=== PATIENT | female | born 1975 | race Caucasian/White ===

== ENCOUNTER → 2016-02-21 | Day surgery (SDC) | payer OTHER ==
--- NOTE | 2016-02-18 20:54 | GHP ---
[f rep st] HISTORY AND PHYSICAL Amended report DATE OF ADMISSION: 02/21/2016 HISTORY OF PRESENT ILLNESS: Patient is a 41-year-old 3, para 1-0-1-1 at 7 weeks and 3 days with an estimated due date 10/03/2016 based on ultrasound with a last menstrual period of 12/23/2015. Patient was seen yesterday at [facility] for AMA and viability. Patient did have an ultrasound done that showed an intrauterine , 6 weeks 1 day by crown rump length and no cardiac motion seen. Diagnosed with first trimester demise. Patient denies any uterine contractions, vaginal bleeding or loss of fluid. Pt endorses some brownish spotting. Today, she is without complaints. Previous ultrasound on 02/11/2016 did show a single living intrauterine , size less than dates by 6 days with heart motion noted at 129 beats per minute. Prior ultrasound to that, 02/03/2016 did show an intrauterine at 6 weeks 0 days with a heart rate of 90 beats per minute. Patient presented early for her care at [facility]. Patient did have lab work with an appropriate increase or rise in quants from early January through mid January. She even had normal progesterone levels. Patient is Rh positive, 0 positive. Patient is interested in having a suction D and C at this time. We did discuss other treatment options; conservative treatment with observation versus medical treatment with Cytotec. She still desires surgical treatment, a suction D and C at this time. 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 Patient is interested in work up for recurrent loss. PAST OB HISTORY: In 2014, patient had a 37 week section, female, 5 pounds 5 ounces, secondary to placenta previa. In December 2015, she had twins with missed at around 5 weeks requiring a suction D and C. FARM TRACTOR OPERATOR HISTORY: Cycles are irregular, can be as long as 48 days and she usually bleeds for 3-4 days. Her last menstrual period was 12/23/2015. She has a history of abnormal Pap in 2001 and had a colposcopy. Most recent Pap smear July 2015 was normal, and chlamydia and gonorrhea cultures were normal July 2015. PAST MEDICAL HISTORY: Negative. PAST SURGICAL HISTORY: Remarkable for section as well as wisdom teeth extraction. FAMILY HISTORY: Paternal grandfather , age 80, myocardial infarction. Both mother and father have chronic hypertension. Maternal grandmother breast cancer diagnosed age 79. ALLERGIES: Penicillin, tetracycline. MEDICATIONS: vitamins, DHA. SOCIAL HISTORY: Negative for any alcohol, tobacco, illicit drug use. She does live with her and their daughter, Heather. LABS: Most recent quantitative beta HCG was 1194, progesterone was 68.7; this was on 01/18/2016. She is 0 positive. PHYSICAL EXAMINATION: GENERAL: Patient is a well-nourished, well-developed, 41 -year-old female. Alert and oriented x3. No apparent distress. She is tearful. HEART: Regular rate and rhythm. LUNGS: Clear to auscultation bilaterally. ABDOMEN: Soft, nontender. PELVIC: Deferred. ASSESSMENT/PLAN: Patient is a 41-year-old 3, para 1-0-1-1, with a 6 week 1 day fetus by crown rump length with Missed . Patient was given treatment options. She desires surgical treatment at this time, suction D and C. This is scheduled with Dr. Anh Kong on 02/21/2016 at 7:30 am. Surgical consents are to be done at the bedside by Dr. Kong. Antibiotics: Doxycycline 100 mg IV prior to the incision. /[id number]/MODL Add acc#, 02/21/16, roland GIBSON
[~2016-02-21] MED LIST: CLINDAMYCIN 600 MG/DEXTROSE 50 ML IV ONE; DEXAMETHASONE 4 MG/ML VIAL ONE; KETOROLAC 30 MG/1 ML SDV ONE; LIDOCAINE 2% 100 MG/5 ML SYR IVP ONE; LR 1,000 ML IV SCH; MIDAZOLAM 2 MG/2 ML VIAL ONE; PROPOFOL/EMULSION 500 MG/50 ML BOTTLE IV ONE; SILVER NITRATE APPLICATOR 1 APPL TP ONE; fentaNYL 100 MCG/2 ML INJ ONE
--- NOTE | 2016-02-21 10:38 | GOP ---
[f rep st] OPERATIVE REPORT DATE OF OPERATION: 02/21/2016 SURGEON: Anh Kong MD PREOPERATIVE DIAGNOSIS: MAB at 8 wks POSTOPERATIVE DIAGNOSIS: MAB at 8 wks PROCEDURE PERFORMED: D and C FINDINGS: mod amount of POCs SPECIMENS: The POCs were sent to pathology and then to be sent on to Anora testing. I spoke with Dr. Ulloa of Pathology to hopefully facilitate that the bulk of the tissue be sent on for testing as the patient did not have an adequate sampling for results at the last D and C. ESTIMATED BLOOD LOSS: 25 mL. DESCRIPTION OF PROCEDURE: The patient was taken to the operating room, where following satisfactory IV general anesthesia, the patient was placed in dorsal lithotomy position for vaginal procedures. The patient had urinated prior to coming to the operating room. The patient was given a dose of IV clindamycin prior to the procedure. She had SCDs on her lower extremities for DVT prophylaxis. The patient's perineum and vagina were prepped, and the patient draped in usual sterile manner for vaginal procedures. The patient had wanted confirmation prior to surgery, and an ultrasound had been performed, showing a gestational sac with a large yolk sac and a very small pole with no cardiac activity. A sterile speculum was placed within the vagina. An atraumatic grasper was placed on the anterior lip of the cervix, and gentle traction applied. The cervix was easily dilated up to 8-1/2 Hegar dilator. A # 8 tip was used on the suction machine, and 2 passes were made with the suction, obtaining a moderate amount of tissue. As the patient wanted to minimize any scraping, an ultrasound was performed at this point, which revealed that there was no retained sac, and the endometrial lining was thin. Sharp curettage was used for just minimal scraping on the anterior lining, and only small fragments of tissue obtained. One final pass with the suction was performed, and minimal blood obtained. There was minimal bleeding after the procedure. The tenaculum was removed and the cervix was hemostatic. The patient was given a dose of Toradol through the IV. The patient was cleaned off and taken out of position, and then taken to the recovery room in stable condition. She was waking up normally. There were no complications from surgery. PREOPERATIVE HISTORY: Upon admission, the patient is a 41-year-old, G3, P1, A1 at 8-9 weeks gestation by 2 earlier ultrasounds that showed increasing growth and heart rate. However , on visit on 02/17/2016 with a maternal specialist, the patient was measuring size less than dates at 6 weeks 4 days with no cardiac activity. She was diagnosed with a missed AB, and was advised about options. She did want to optimize chromosome testing and wants to proceed with a D and C for definitive management. The patient is aware of options with potentially awaiting an SAB versus Cytotec to induce a miscarriage, but the patient wants to proceed with surgery. The patient has been fully counseled as to risks and benefits, and the consent form signed. The patient's laboratory testing had been normal with good progesterone levels and increasing HCG levels. Her blood type is A positive. The patient has not had any bleeding or cramping and has symptoms of nausea. The patient does want Anora testing for chromosomes. /[id number]/MODL MTDD
== END | disposition home or self-care (01) ==
LOC: FOBOP 06:30
PROVIDERS: ATTEND Obstetrics & Gynecology
PROC: 10D17ZZ Extraction of Products of Conception, Retained, Via Natural or Artificial Opening (ICD-10-PCS; principal; 2016-02-21)
DX: O02.1 Missed abortion (principal)
CPT/HCPCS: J1100; J1885; J2001; J2250; J2704; J3010

== ENCOUNTER → 2017-02-08 | Outpatient (CLI) | payer OTHER | LOC: CIMAGING 07:27 | PROVIDERS: ATTEND Obstetrics & Gynecology | DX: Z12.31 Encounter for screening mammogram for malignant neoplasm of breast (principal); R92.8 Other abnormal and inconclusive findings on diagnostic imaging of breast ==

== ENCOUNTER → 2017-10-11 | Outpatient (CLI) | payer OTHER | LOC: FIMAGING 11:31 | PROVIDERS: ATTEND Obstetrics & Gynecology | DX: O09.522 Supervision of elderly multigravida, second trimester (principal); O09.292 Supervision of pregnancy with other poor reproductive or obstetric history, second trimester; Z3A.15 15 weeks gestation of pregnancy ==

== ENCOUNTER → 2017-11-08 | Outpatient (CLI) | payer OTHER | LOC: FIMAGING 10:21 | PROVIDERS: ATTEND Obstetrics & Gynecology | DX: O09.512 Supervision of elderly primigravida, second trimester (principal); O26.22 Pregnancy care for patient with recurrent pregnancy loss, second trimester; D68.61 Antiphospholipid syndrome; O99.112 Other diseases of the blood and blood-forming organs and certain disorders involving the immune mechanism complicating pregnancy, second trimester ==

== ENCOUNTER → 2018-02-14 | Outpatient (CLI) | payer OTHER | LOC: FIMAGING 13:10 | PROVIDERS: ATTEND Obstetrics & Gynecology | DX: O09.523 Supervision of elderly multigravida, third trimester (principal); O09.293 Supervision of pregnancy with other poor reproductive or obstetric history, third trimester; Z3A.33 33 weeks gestation of pregnancy ==

== ENCOUNTER → 2018-02-21 | Outpatient (CLI) | payer OTHER | LOC: FIMAGING 14:02 | PROVIDERS: ATTEND Obstetrics & Gynecology | DX: O09.523 Supervision of elderly multigravida, third trimester (principal); O26.23 Pregnancy care for patient with recurrent pregnancy loss, third trimester; O99.113 Other diseases of the blood and blood-forming organs and certain disorders involving the immune mechanism complicating pregnancy, third trimester; D68.61 Antiphospholipid syndrome; Z3A.34 34 weeks gestation of pregnancy ==

== ENCOUNTER 2018-03-01 07:40 | Observation (INO) | payer OTHER ==
[2018-03-01] MEDS ORDERED: HEPARIN 5,000 UNIT/0.5 ML INJ SC SCH (10:15)
--- NOTE | 2018-03-01 16:09 | GHP ---
DATE OF ADMISSION: 03/01/2018 ADMISSION DIAGNOSIS: Intrauterine at 35 and 4/7 weeks' gestation, vaginal bleeding. Patient is a 43-year-old 7, para 1-0-5-1, who called this morning complaining of having a slight cramping and a small amount of dark brownish blood. Patient states she is feeling good movement. She has a Doppler for home and baby sounded good, but she came in for evaluation. Patient has a history of a previous section for placenta previa and is scheduled for repeat at 39 weeks secondary to the previous and history of isthmocele repair prior to this . Patient also was found to have antiphospholipid antibody syndrome, so she has been anticoagulated during this with Lovenox and baby aspirin. On arrival , patient's status was reassuring. She was having occasional contractions on the monitor, which were not palpating. She had no further bleeding. Nonstress test was reactive with positive accelerations and no decelerations. A speculum exam was performed, which showed a small amount of old blood in the vagina. No active bleeding was noted. A digital exam was performed, which showed the cervix to be fingertip and 50% effaced. is in a vertex presentation. We had a long discussion about management options and patient is electing to go home. We discussed bleeding precautions, kick counts and labor precautions. She has been on Lovenox b.i.d. We transitioned her to heparin b.i.d. and I asked her to discontinue her baby aspirin. She will continue her 2-times-a- week nonstress test and follow up in the office next week. Patient was discharged to home and will follow up if any further questions arise. /[id number]/MODL MTDD
== END 2018-03-01 12:20 | disposition home or self-care (01) ==
LOC: FOBOP 07:40 → FLD 08:00
PROVIDERS: ADMIT Obstetrics & Gynecology; ATTEND Obstetrics & Gynecology
DX: O46.003 Antepartum hemorrhage with coagulation defect, unspecified, third trimester (principal); Z3A.35 35 weeks gestation of pregnancy
CPT/HCPCS: 59025; G0378; J1644

== ENCOUNTER → 2018-03-14 | Outpatient (CLI) | payer OTHER | LOC: FIMAGING 13:47 | PROVIDERS: ATTEND Obstetrics & Gynecology | DX: O09.523 Supervision of elderly multigravida, third trimester (principal); O26.23 Pregnancy care for patient with recurrent pregnancy loss, third trimester; O99.113 Other diseases of the blood and blood-forming organs and certain disorders involving the immune mechanism complicating pregnancy, third trimester; D89.82 Autoimmune lymphoproliferative syndrome [ALPS]; Z79.01 Long term (current) use of anticoagulants; Z3A.37 37 weeks gestation of pregnancy ==

== ENCOUNTER 2018-03-23 17:15 | Inpatient (IN) | payer OTHER ==
[2018-03-23] MEDS ORDERED: CITRIC ACID/SODIUM CITRATE 30 ML UDCUP PO ONE (18:36)
[2018-03-23] MEDS ORDERED: LR 500 ML IV ONE ×2 (18:36→19:44)
[2018-03-23] MEDS ORDERED: LR 1,000 ML IV SCH ×2 (19:00→20:00)
[2018-03-23 19:14] LABS: PLATELET COUNT 205 10^3/uL (150-400)
[2018-03-23] MEDS ORDERED: BUPIVACAINE/DEXTROSE 7.5MG/ML 2 ML SPINAL AMP SP ONE (19:22)
[2018-03-23] MEDS ORDERED: morphINE PF 10 MG/10 ML INJ ONE (19:23)
[2018-03-23] MEDS ORDERED: OXYTOCIN 100 UNITS/10 ML VIAL ONE (19:23)
[2018-03-23] MEDS ORDERED: PHENYLEPHRINE HCL 100 MCG/ML SYR ONE ×4 (19:23→21:03)
--- NOTE | 2018-03-23 19:32 | PDANEPAE ---
ANE Past Medical History - Cardiovascular History Hx Hypertension: No Hx Arrhythmias: No Hx Chest Pain: No - Pulmonary History Hx COPD: No Hx Sleep Apnea: No - Endocrine History Hx Diabetes: No Hypothyroid: No - Renal History Hx Renal Disorders: No - Liver History Hx Hepatic Disorders: No - Neurological & Psychiatric Hx Hx Neurological and Psychiatric Disorders: No - Congenital Disorder History Hx Congenital Disorders: No - Other Health History Other Health History: Hx APL Syndrome - Chronic Pain History Chronic Pain: No ANE Review of Systems Review of Systems: ANE Patient History - Allergies Allergies/Adverse Reactions: Penicillins Allergy (Verified 02/28/15 14:59) Rash tetracycline Allergy (Verified 02/28/15 14:59) Other-Enter Comments venom-honey bee [bee venom (honey bee)] Allergy (Verified 02/28/15 14:59) Swelling/neck,face,throat pumpkin Allergy (Uncoded 04/02/14 09:12) - Home Medications Home Medications: 1 tab PO DAILY 03/19/14 [Last Taken Unknown] FOLIC ACID 400 mcg PO DAILY 03/01/18 [Last Taken Unknown] Naltrexone 4.5 mg PO DAILY 03/01/18 [Last Taken Unknown] Vitamin D3/Folic Acid 1 tab PO DAILY 03/01/18 [Last Taken Unknown] - Smoking Hx Smoking Status: Never smoked ANE Labs/Vital Signs - Labs Result Diagrams: 03/23/18 19:00 - Vital Signs Height: 167.64 cm Weight: 62.596 kg ANE Physical Exam - Airway Neck exam: FROM Mallampati Score: Class 2 Mouth exam: normal dental/mouth exam - Pulmonary Pulmonary: no respiratory distress, no rales or rhonchi, clear to auscultation - Cardiovascular Cardiovascular: regular rate and rhythym, no murmur, rub, or gallop - ASA Status ASA Status: III, E ANE Anesthesia Plan Anesthesia Plan: spinal
[2018-03-23] MEDS ORDERED: AZITHROMYCIN IV 500 MG in NS 250 ML IV ONE (19:45)
[2018-03-23] MEDS ORDERED: PROMETHAZINE HCL 25 MG/ML INJ IVP PRN ×2 (19:48→21:43)
[2018-03-23] MEDS ORDERED: METOCLOPRAMIDE 10 MG/2 ML VIAL IVP PRN (19:48)
[2018-03-23] MEDS ORDERED: PHENYLEPHRINE HCL 100 MCG/ML SYR IVP PRN (19:48)
[2018-03-23] MEDS ORDERED: oxyCODONE IR 5 MG TAB PO PRN (19:48)
[2018-03-23] MEDS ORDERED: ONDANSETRON 4 MG/2 ML VIAL IVP PRN (19:48)
[2018-03-23] MEDS ORDERED: MEPERIDINE 25 MG/0.5 ML AMP IVP PRN (19:48)
[2018-03-23] MEDS ORDERED: NALOXONE HCL 0.4 MG/ML INJ IVP PRN (19:48)
[2018-03-23] MEDS ORDERED: HYDROmorphONE/DILAUDID 2 MG/ML INJ IVP PRN (19:48)
[2018-03-23] MEDS ORDERED: fentaNYL 100 MCG/2 ML INJ IVP PRN (19:48)
[2018-03-23] MEDS ORDERED: ceFAZolin 2 GM/DEXTROSE 100 ML IV ONE (19:49)
--- NOTE | 2018-03-23 19:51 | POSTANESTH ---
Post Anesthetic Evaluation Cardiovascular Status: Normal, Stable Respiratory Status: Normal, Stable Level of Consciousness/Mental Status: Can Participate in Eval Pain Control: Adequate, Prn Tx Ordered Nausea/Vomiting Control: Adequate, Prn Tx Ordered Complications Possibly Related to Anesthesia: None Noted
--- NOTE | 2018-03-23 20:19 | PDGENHP ---
History and Physical - Chief Complaint SROM, H/o prior - History of Present Illness Ignacia is a 43 yo at 38w5d by LUPIS of 04/01/18 (by IVF transfer) who presented this evening complaining of small but continuous intermittent loss of fluid over the course of the past 24 hrs. Amnisure positive. She reports that yesterday afternoon she noticed some loss of fluid and change in abdominal pain/ contractions, but leaking was not consistent and pain eventually resolved and she was able to sleep. She reported that today the leaking has still been small but definitely still occurring, so she did present for evaluation. No real ctx's currently on admission, afebrile, otherwise feeling good. With Ignacia's last she was on inpatient bedrest w placenta previa during the third trimester leading up to scheduled PLTCS. Did well with her first section, but did ultimately get dx'd with an isthmocele that was later repaired robotically by [employer] in [place]. Since that first had recurrent preg loss (one of those had Anora T16) , dx'd with anti-phospholipid antibody syndrome, had failed IVF w [facility] and then this successful transfer w [facility] in [place]. Due to APLS on Lovenox 40 BID, transitioned to Heparin 10k BID at 36 wks - last dose was 0700 this AM. otherwise complicated by AMA, Depression/anxiety, Large subchorionic hematoma at 12 wks, Naltrexone recommended throughout by [facility]. Labs: O pos Antibody neg RPR NR Rubella IMMUNE Hep B neg HIV neg Parvo and VZV IMMUNE GC/C neg AFp neg Innatal Neg Glucola 80 GBS neg History Information - Allergies/Home Medication List Allergies/Adverse Reactions: Penicillins Allergy (Verified 02/28/15 14:59) Rash tetracycline Allergy (Verified 02/28/15 14:59) Other-Enter Comments venom-honey bee [bee venom (honey bee)] Allergy (Verified 02/28/15 14:59) Swelling/neck,face,throat pumpkin Allergy (Uncoded 04/02/14 09:12) Home Medications: 1 tab PO DAILY 03/19/14 [Last Taken Unknown] FOLIC ACID 400 mcg PO DAILY 03/01/18 [Last Taken Unknown] Naltrexone 4.5 mg PO DAILY 03/01/18 [Last Taken Unknown] Vitamin D3/Folic Acid 1 tab PO DAILY 03/01/18 [Last Taken Unknown] I have personally reviewed and updated: family history, medical history, social history, surgical history Past Medical History: Anti-phospholipid antibody syndrome, AMA, Anxiety/ depression, naltrexone use throughout , recurrent loss - Surgical History Additional surgical history: H/o , h/o robotic isthmocele repair, wisdom teeth, D&C x 2, back surgery herniated disk - Family History Positive for: non-pertinent - Social History Smoking Status: Never smoked Review of Systems Review of Systems: ROS: 10pt was reviewed & negative except for what was stated in HPI & below Physical Exam Physical Exam: Appears comfortable, calm, NAD Belly soft, NT, ND Longitudinal lie FHR 120s, mod jim, accels present, no decels [place] Irritability Temp Pulse Resp BP Pulse Ox 37.7 C 84 16 112/61 98 03/23/18 19:29 03/23/18 19:29 03/23/18 19:29 03/23/18 19:29 03/23/18 19:29 Lab Data & Imaging Review 03/23/18 19:00 WBC 11.36 10^3/uL (3.80-9.50) H 03/23/18 19:00 RBC 4.26 10^6/uL (4.18-5.33) 03/23/18 19:00 Hgb 14.0 g/dL (12.6-16.3) 03/23/18 19:00 Hct 40.4 % (38.0-47.0) 03/23/18 19:00 MCV 94.8 fL (81.5-99.8) 03/23/18 19:00 MCH 32.9 pg (27.9-34.1) 03/23/18 19:00 MCHC 34.7 g/dL (32.4-36.7) 03/23/18 19:00 RDW 12.7 % (11.5-15.2) 03/23/18 19:00 Plt Count 205 10^3/uL (150-400) 03/23/18 19:00 MPV 10.5 fL (8.7-11.7) 03/23/18 19:00 Neut % (Auto) 62.5 % (39.3-74.2) 03/23/18 19:00 Lymph % (Auto) 23.0 % (15.0-45.0) 03/23/18 19:00 Rawlins % (Auto) 9.9 % (4.5-13.0) 03/23/18 19:00 Eos % (Auto) 1.6 % (0.6-7.6) 03/23/18 19:00 Baso % (Auto) 0.9 % (0.3-1.7) 03/23/18 19:00 Nucleat RBC Rel Count 0.0 % (0.0-0.2) 03/23/18 19:00 Absolute Neuts (auto) 7.11 10^3/uL (1.70-6.50) H 03/23/18 19:00 Absolute Lymphs (auto) 2.61 10^3/uL (1.00-3.00) 03/23/18 19:00 Absolute Monos (auto) 1.12 10^3/uL (0.30-0.80) H 03/23/18 19:00 Absolute Eos (auto) 0.18 10^3/uL (0.03-0.40) 03/23/18 19:00 Absolute Basos (auto) 0.10 10^3/uL (0.02-0.10) 03/23/18 19:00 Absolute Nucleated RBC 0.00 10^3/uL (0-0.01) 03/23/18 19:00 Immature Gran % 2.1 % (0.0-1.1) H 03/23/18 19:00 Immature Gran # 0.24 10^3/uL (0.00-0.10) H 03/23/18 19:00 APTT 32.6 SEC (23.0-38.0) 03/23/18 19:55 Membrane Rupture POSITIVE (NEGATIVE) H 03/23/18 17:35 Patient ABO/Rh O POSITIVE 03/23/18 19:00 Antibody Screen NEGATIVE 03/23/18 19:00 Assessment & Plan Assessment: 43 yo w/ h/o prior section, presents at 38w5d with SROM. - Will proceed to OR this evening. - Azithromycin 500mg IV following weight-based Ancef. - No s/sx of chorio/infection at this time - afebrile, normal WBC, baby FHR normal range. - Routine preop orders including PTT due to 0700 heparin dose. - Plan to restart Lovenox 40mg BID 12 hrs postop (0900 tomorrow AM). - Routine preop orders. JM
[2018-03-23] MEDS ORDERED: ePHEDrine SULFATE 25 MG/5 ML SYR ONE ×2 (21:09→21:13)
[2018-03-23] MEDS ORDERED: BISACODYL 10 MG SUPP PR PRN (21:43)
[2018-03-23] MEDS ORDERED: POLYETHYLENE GLYCOL 3350 17 GM PKT PO PRN (21:43)
[2018-03-23] MEDS ORDERED: LACTULOSE 20 GM/30 ML UDCUP PO PRN (21:43)
[2018-03-23] MEDS ORDERED: MAGNESIUM HYDROXIDE 30 ML UDCUP PO PRN (21:43)
--- NOTE | 2018-03-23 21:54 | POSTOPPROG ---
Post Op Note Date of Operation: 03/23/18 Surgeon: Danilo Alexis Gasket Former: Anh Kong Anesthesiologist: Lul Taylor Anesthesia: Spinal Pre-op Diagnosis: SROM, h/o prior , h/o hysterotomy revision laparoscopic Post-op Diagnosis: Same Procedure: RLTCS Findings: Minimal scar tissue, vigorous baby boy, normal [place]/tubes/ovaries Inf/Abcess present in the surg proc area at time of surgery?: No EBL: 700 Complications: None Specimen(s): None
--- NOTE | 2018-03-23 22:00 | SUROPNOTE ---
[facility] Operative Report - Surgery Date of Operation: 03/23/18 Surgeon: Danilo Alexis C.O.D. Biller: Anh Kong Anesthesiologist: Lul Taylor Anesthesia: Spinal Pre-op Diagnosis: SROM, h/o prior , h/o hysterotomy revision laparoscopic Post-op Diagnosis: Same Procedure: RLTCS Findings: Minimal scar tissue, vigorous baby boy, normal [place]raham/tubes/ovaries Inf/Abcess present in the surg proc area at time of surgery?: No EBL: 700 Complications: None Specimen(s): None Technique:
[2018-03-23] MEDS: KETOROLAC 30 MG/1 ML SDV IVP SCH (22:29)
[2018-03-23] MEDS: IBUPROFEN 600 MG TAB PO SCH (23:00)
[2018-03-24] MEDS: ACETAMINOPHEN 325 MG TAB PO SCH ×5 (00:45→23:06)
[2018-03-24] MEDS: IBUPROFEN 600 MG TAB PO SCH ×4 (04:18→23:05)
[2018-03-24] MEDS: KETOROLAC 30 MG/1 ML SDV IVP SCH ×3 (04:56→17:11)
[2018-03-24] MEDS: ENOXAPARIN 40 MG/0.4 ML SYR SC SCH ×2 (09:36→21:26)
[2018-03-24] MEDS: SENNOSIDES/DOCUSATE SODIUM TAB PO SCH ×2 (11:25→21:26)
--- NOTE | 2018-03-24 13:49 | PDPAINCON ---
Pain Management Consultation - Subjective Pain is: low, well controlled Activity: able to ambulate - Objective Technique: spinal opioid Sensory and motor exam: other (pain well controlled, local anesthetic effect resolved) Vital signs: stable - Assessment/Plan Assessment/Plan: pain well-controlled, continue current mgmt Additional comments: transition to po analgesics as spinal morphine effect wanes
--- NOTE | 2018-03-24 14:42 | OBPP ---
Progress Note Assessment/Plan: Assessment: POD 1 s/p RCS doing well but feeling light headed and low blood pressure - no clinical signs of concern h/o APLS - on lovenox BID Depr/anxiety, h/o recurrent Ab, IVF Plan: routine post op care, lovenox will cont IVF for now while pt rests, and d/c nixon when amb well 03/24/18 14:24 Subjective/ Course: 03/24/18 14:42 Pt doing well. Pain well controlled with Toradol and duramorph. No nausea, eating reg diet. Not OOB yet. Didn't sleep much and visitors all today and feels off - a bit lightheaded. Disc rest. Baby has been latching well and getting colostrum. Pt asked why I hadn't had her come into hosp to check for ROM on Fri night - and we disc that usually physical signs of ROM will further manifest with cont leaking and labor and that we'd planned that if cramping increased or cont leaking that it would be prudent to check. pt reported several hours of strong cramping after we talked but she didn't call back. Unable to know for sure if pt was prolonged ROM or not. Luckily, no signs of infection with normal WBCs on admit and baby doing wonderfully. Objective: 03/24/18 05:20 Patient ABO/Rh O POSITIVE 03/23/18 19:00 Temp Pulse Resp BP Pulse Ox 36.4 C 76 16 78/52 L 97 03/24/18 12:00 03/24/18 12:00 03/24/18 12:00 03/24/18 12:00 03/24/18 12:00 Uterine Position/Fundal Height: Umbilicus -2 Uterine Tone: Firm Physical Exam - Physical Exam Abdomen: non-tender (approp post op tenderness), soft, dressing (CDI) Extremities: non-tender, pedal edema (none - SCDs on) Skin: normal color, warm/dry Neuro/Psych: alert, normal mood/affect
[2018-03-25] MEDS: oxyCODONE IR 5 MG TAB PO PRN ×2 (01:07→13:45)
[2018-03-25] MEDS: IBUPROFEN 600 MG TAB PO SCH ×4 (05:02→23:38)
[2018-03-25] MEDS: ACETAMINOPHEN 325 MG TAB PO SCH ×4 (05:02→23:38)
--- NOTE | 2018-03-25 10:31 | OBPP ---
Progress Note Assessment/Plan: Assessment: pod# 2 s/p RLTCS symptomatic hypotension - resolved antiphospholipid antibody syndrome on lovenox breast feeding Plan: 03/25/18 10:28 Subjective/ Course: 03/24/18 14:42 Pt doing well. Pain well controlled with Toradol and duramorph. No nausea, eating reg diet. Not OOB yet. Didn't sleep much and visitors all today and feels off - a bit lightheaded. Disc rest. Baby has been latching well and getting colostrum. Pt asked why I hadn't had her come into hosp to check for ROM on Fri night - and we disc that usually physical signs of ROM will further manifest with cont leaking and labor and that we'd planned that if cramping increased or cont leaking that it would be prudent to check. pt reported several hours of strong cramping after we talked but she didn't call back. Unable to know for sure if pt was prolonged ROM or not. Luckily, no signs of infection with normal WBCs on admit and baby doing wonderfully. 03/25/18 10:29 patient is doing well. pain is well controlled. normal lochia. feeling better than yesterday. less light headedness. ambulating. passing gas. voiding without difficulty. breast feeding is going well. Objective: 03/24/18 05:20 Patient ABO/Rh O POSITIVE 03/23/18 19:00 Temp Pulse Resp BP Pulse Ox 36.5 C 84 16 95/62 L 96 03/25/18 08:00 03/25/18 08:00 03/25/18 08:00 03/25/18 08:00 03/25/18 08:00 Physical Exam - Physical Exam Respiratory: chest non-tender, lungs clear, normal breath sounds Cardiac/Chest: normal peripheral pulses, regular rate, rhythm Abdomen: normal bowel sounds, non-tender (fu), other (fundus firm and non tender ) Extremities: normal range of motion, non-tender, normal inspection, normal capillary refill Skin: normal color, warm/dry, other (incicion clean dry and intact) Neuro/Psych: no motor/sensory deficits, alert, normal mood/affect, oriented x 3
[2018-03-25] MEDS: ENOXAPARIN 40 MG/0.4 ML SYR SC SCH ×2 (11:03→21:34)
[2018-03-25] MEDS: SENNOSIDES/DOCUSATE SODIUM TAB PO SCH ×2 (11:04→21:34)
[2018-03-25] MEDS: SIMETHICONE 80 MG TAB CHEW PO PRN (16:36)
[2018-03-25] MEDS ORDERED: HYDROCORTISONE 0.5% CREAM TP SCH (22:00)
[2018-03-25] MEDS ORDERED: diphenhydrAMINE 25 MG CAP PO ONE (22:00)
[2018-03-26] MEDS: IBUPROFEN 600 MG TAB PO SCH ×3 (05:32→14:30)
[2018-03-26] MEDS: ACETAMINOPHEN 325 MG TAB PO SCH ×3 (05:33→14:27)
[2018-03-26] MEDS: SENNOSIDES/DOCUSATE SODIUM TAB PO SCH (08:44)
[2018-03-26] MEDS: ENOXAPARIN 40 MG/0.4 ML SYR SC SCH (08:44)
--- NOTE | 2018-03-26 09:32 | OBPP ---
Progress Note Assessment/Plan: Assessment: 1) s/p RLTCS POD #3 - pt is stable 2) Slight anemia - pt is asymptomatic 3) Antiphospholipid antibody syndrome - on lovenox Plan: Plan for d/c home today Instructions reviewed with pt Rx given for Oxy, Motrin and Lovenox Continue PNV, iron and colace prn Pelvic rest Cont Lovenox x 6 weeks pp Lifting restrictions given RTC in 2 weeks for incision check, 4 weeks for a mood check and 6 weeks for a pp check 03/26/18 09:28 Subjective/ Course: 03/24/18 14:42 Pt doing well. Pain well controlled with Toradol and duramorph. No nausea, eating reg diet. Not OOB yet. Didn't sleep much and visitors all today and feels off - a bit lightheaded. Disc rest. Baby has been latching well and getting colostrum. Pt asked why I hadn't had her come into hosp to check for ROM on Fri night - and we disc that usually physical signs of ROM will further manifest with cont leaking and labor and that we'd planned that if cramping increased or cont leaking that it would be prudent to check. pt reported several hours of strong cramping after we talked but she didn't call back. Unable to know for sure if pt was prolonged ROM or not. Luckily, no signs of infection with normal WBCs on admit and baby doing wonderfully. 03/25/18 10:29 patient is doing well. pain is well controlled. normal lochia. feeling better than yesterday. less light headedness. ambulating. passing gas. voiding without difficulty. breast feeding is going well. 03/26/18 09:30 Pt seen and examined. She is doing much better today-pain is well controlled. Pt is OOB, darlene regular diet, voiding without difficulty and passing flatus. No BM yet. Mod lochia. Pt denies any f/c/n/v/CP or SOB. BF without difficulty. Objective: 03/24/18 05:20 Patient ABO/Rh O POSITIVE 03/23/18 19:00 Temp Pulse Resp BP Pulse Ox 36.4 C 76 16 95/57 L 95 03/25/18 20:00 03/25/18 20:00 03/25/18 20:00 03/25/18 20:00 03/25/18 20:00 Uterine Position/Fundal Height: Umbilicus -2 Uterine Tone: Firm Physical Exam - Physical Exam General Appearance: WD/WN, alert, no apparent distress Respiratory: lungs clear, normal breath sounds Cardiac/Chest: regular rate, rhythm Abdomen: normal bowel sounds, non-tender, soft, flatus (+), incision (C/D/I; well approximated) Extremities: non-tender, normal inspection Skin: normal color, warm/dry Neuro/Psych: alert, normal mood/affect, oriented x 3
--- NOTE | 2018-03-26 09:33 | OBGCSDC ---
General Delivery Information - General Info : 7 Para: 1 Abortions: 5 L&D Analgesia/Anesthesia Type: Spinal Admission Date: 03/24/18 Labs: Patient ABO/Rh O POSITIVE 03/23/18 19:00 Hct 37.1 % (38.0-47.0) L 03/24/18 05:20 - Hospital Course : 03/24/18 14:42 Pt doing well. Pain well controlled with Toradol and duramorph. No nausea, eating reg diet. Not OOB yet. Didn't sleep much and visitors all today and feels off - a bit lightheaded. Disc rest. Baby has been latching well and getting colostrum. Pt asked why I hadn't had her come into hosp to check for ROM on Sun night - and we disc that usually physical signs of ROM will further manifest with cont leaking and labor and that we'd planned that if cramping increased or cont leaking that it would be prudent to check. pt reported several hours of strong cramping after we talked but she didn't call back. Unable to know for sure if pt was prolonged ROM or not. Luckily, no signs of infection with normal WBCs on admit and baby doing wonderfully. 03/25/18 10:29 patient is doing well. pain is well controlled. normal lochia. feeling better than yesterday. less light headedness. ambulating. passing gas. voiding without difficulty. breast feeding is going well. 03/26/18 09:30 Pt seen and examined. She is doing much better today-pain is well controlled. Pt is OOB, darlene regular diet, voiding without difficulty and passing flatus. No BM yet. Mod lochia. Pt denies any f/c/n/v/CP or SOB. BF without difficulty. - Delivery Providers Surgeon: Danilo Alexis Oriental Data LUPIS: 04/01/18 Gestational Age: 39 week(s) and 1 day(s) Reyes Delivery Date: 03/23/18 Delivery Time: 20:57 Oriental Weight (gm): 3470 g Discharge Information - Discharge Information Condition: Good Instruction/Follow Up: Two Weeks (incision check), Four Weeks (mood check), Six Weeks ( check)
[2018-03-26 12:32] VITALS: BP 105/60
[2018-03-26] MEDS: SIMETHICONE 80 MG TAB CHEW PO PRN (14:26)
== END 2018-03-26 16:10 | disposition home or self-care (01) | DRG 787 ==
LOC: FLD 17:15 → FOB 23:02 → OBSVTOIN 03-24 10:12
PROVIDERS: ADMIT Obstetrics & Gynecology; ATTEND Obstetrics & Gynecology
PROC: 10D00Z1 Extraction of Products of Conception, Low, Open Approach (ICD-10-PCS; principal; 2018-03-24)
DX: O42.92 Full-term premature rupture of membranes, unspecified as to length of time between rupture and onset of labor (principal); O34.219 Maternal care for unspecified type scar from previous cesarean delivery; O99.113 Other diseases of the blood and blood-forming organs and certain disorders involving the immune mechanism complicating pregnancy, third trimester; D68.61 Antiphospholipid syndrome; O99.343 Other mental disorders complicating pregnancy, third trimester; F41.8 Other specified anxiety disorders; Z3A.39 39 weeks gestation of pregnancy; Z37.0 Single live birth
CPT/HCPCS: J0456; J0690; J1650; J1885; J2274; J2370; J2590

== ENCOUNTER → 2018-06-06 | Outpatient (CLI) | payer OTHER | LOC: FLACT 14:18 ==

== ENCOUNTER → 2018-07-02 | Outpatient (CLI) | payer OTHER | LOC: FLACT 15:15 | PROVIDERS: ATTEND Obstetrics & Gynecology | DX: Z39.1 Encounter for care and examination of lactating mother (principal) ==